=== PATIENT | male | born 1990 | race Caucasian/White ===

== ENCOUNTER 2023-07-23 11:47 | Emergency (ER) | payer BC, SELFPAY ==
[2023-07-23 11:56] VITALS: BP 118/97; PULSE 96; RESP 16; TEMP 37.4; O2SAT 98
--- NOTE | 2023-07-23 12:18 | ED.URI ---
HPI - URI/Sore Throat General Chief Complaint: Upper Respiratory Infection Stated Complaint: SOB/CONGESTION/HEADACHE/VOMITING Source: patient and RN notes reviewed Mode of arrival: ambulatory Limitations: no limitations History of Present Illness HPI Narrative: 32 y/o male presented for complaint of fever, fatigue, nasal congestion, sore throat. Onset 4 days. Then started with nausea/vomiting today. States it feels harder to take in a full deep breath. Taking Mucinex for symptoms. Denies shortness of breath, wheezing, chest pain, or lethargy. MD elicited complaint: cough Related Data Home Medications Medication Instructions Recorded Confirmed No Home Medications 07/23/23 07/23/23 Allergies Allergy/AdvReac Type Severity Reaction Status Date / Time No Known Allergies Allergy Verified 07/23/23 11:56 Review of Systems Review of Systems: CONSTITUTIONAL: Endorses malaise, chills, sweats, fever EYES: Denies visual changes, redness, or discharge ENT: Reports rhinorrhea, congestion, sore throat CARDIOVASCULAR: Denies chest pain, palpitations, edema RESPIRATORY: Reports cough, post nasal drainage. Denies dyspnea GASTROINTESTINAL: Endorses nausea, vomiting, Denies abdominal pain, diarrhea SKIN: Denies rash or itching MUSCULOSKELETAL: Endorses myalgia NEUROLOGIC: Endorses headache PMFSH Past Medical History Medical History (Updated 07/23/23 @ 12:27 by Monalisa Pendleton, CARMEN) No pertinent past medical history Exam Narrative: GENERAL: Ill-appearing, nontoxic EYES: conjunctivae clear ENT: Mucous membranes moist. TM pearly cabral with dull light reflex bilaterally; no tragal tenderness. Oropharynx erythematous without lesions or exudate NECK: Supple. No lymphadenopathy CHEST: Clear to auscultation, breath sounds equal. No wheezing, rhonchi, rales, or stridor. No respiratory distress, speaks in full sentences. HEART: Regular rate and rhythm. No murmur heard. SKIN: Warm, dry, no rash. NEURO: Alert and oriented x3. PSYCH: Normal mood and affect Course Course Emergency Course: Patient is aware of diagnosis, understands and agrees to treatment plan. Anticipatory guidance given. Patient agrees to follow-up as directed and is aware of reasons to seek care at the emergency department. Portions of this record may have been created with voice recognition software Level of Care: Express Care Visit Vital Signs Vital signs: Vital Signs Temperature 99.3 F 07/23/23 11:56 Pulse Rate 96 07/23/23 11:56 Respiratory Rate 16 07/23/23 11:56 Blood Pressure 118/97 H 07/23/23 11:56 Pulse Oximetry 98 07/23/23 11:56 Oxygen Delivery Room Air 07/23/23 11:56 Temperature 99.3 F 07/23/23 11:56 Pulse Rate 96 07/23/23 11:56 Respiratory Rate 16 07/23/23 11:56 Blood Pressure 118/97 H 07/23/23 11:56 Pulse Oximetry 98 07/23/23 11:56 Oxygen Delivery Room Air 07/23/23 11:56 reviewed MDM - URI/Sore Throat MDM Narrative Medical decision making narrative: POS flu B. Discussed physical exam findings. Advised supportive measures and signs/symptoms to go to the ER. Pt is appropriate for outpt treatment and f/u. Differential Diagnosis Differential diagnosis: Likely upper respiratory infection, sinusitis, viral infection, influenza and pharyngitis Discharge Plan Discharge Clinical Impression: Influenza Patient Disposition: Home, Self-Care Condition: Stable Instructions: Antibiotic Form, Influenza (ED) Additional Instructions: Influenza positive You should avoid crowds until you are fever free for 24 hours without the use of fever reducing medications, or the symptoms are improved Rest. Drink plenty of fluids. Tylenol 1000mg every 8 hours as needed for pain/fever Recommend Flonase spray and Zyrtec (or Claritin/Erika) for sinus pressure/congestion over the counter Cough syrup may cause drowsiness; avoid driving or take it at night time. Follow up with your primary care pro
== END 2023-07-23 12:30 | disposition home or self-care (01) ==
PROVIDERS: Emergency Provider Nurse Practitioner Family
DX: J10.1 Influenza due to other identified influenza virus with other respiratory manifestations (principal); Z20.822 Contact with and (suspected) exposure to COVID-19
CPT/HCPCS: 87426; 87804; 99213; C9803; G0463